=== PATIENT | male | born 1950 | race Caucasian/White ===

== ENCOUNTER 2020-01-24 23:29 | Inpatient (IN) | payer MEDICARE, OTHER ==
[~2020-01-24] VITALS: Ht 172.7 cm; Wt 78.7 kg
[~2020-01-24 23:29] MED LIST: AMBI5TAB PO; CYMB60CA3 PO; DESI25TA59 PO; DULO30CA9 PO; KLON1TAB PO; SIMV40TA20 PO; ZOCO40TA PO
[2020-01-25 00:21] LABS: HEMATOCRIT 41.9 % (42.0-52.0); MEAN CORPUSCULAR HEMOGLOBIN 30.2 pg (27.0-33.0); MEAN CORPUSCULAR HGB CONC 33.4 g/dl (32.0-36.5); MEAN CORPUSCULAR VOLUME 90.5 fl (80.0-96.0); PLATELET COUNT, AUTOMATED 280 10^3/uL (150-450); RED BLOOD COUNT 4.63 10^6/uL (4.30-6.10); WHITE BLOOD COUNT 8.3 10^3/uL (4.0-10.0)
[2020-01-25 00:46] LABS: AMPHETAMINES LEVEL URINE NEGATIVE (NEGATIVE); BARBITURATES URINE NEGATIVE (NEGATIVE); BENZODIAZEPINES URINE NEGATIVE (NEGATIVE); CANNABINOIDS URINE NEGATIVE (NEGATIVE); COCAINE METABOLITE URINE NEGATIVE (NEGATIVE); METHADONE URINE NEGATIVE (NEGATIVE); OPIATES URINE POSITIVE (NEGATIVE); PHENCYCLIDINE URINE NEGATIVE (NEGATIVE)
[2020-01-25 00:57] LABS: ACETAMINOPHEN LEVEL 4.2 UG/ML (10.0-30.0); ALBUMIN 3.9 GM/DL (3.2-5.2); ALT/SGPT 30 U/L (12-78); BILIRUBIN,DIRECT 0.2 MG/DL (0.0-0.2); BILIRUBIN,TOTAL 0.8 MG/DL (0.2-1.0); BLOOD UREA NITROGEN 18 MG/DL (7-18); CALCIUM LEVEL 9.4 MG/DL (8.8-10.2); CARBON DIOXIDE LEVEL 28 MEQ/L (21-32); CHLORIDE LEVEL 106 MEQ/L (98-107); CREATININE FOR GFR 1.08 MG/DL (0.70-1.30); ETHYL ALCOHOL (ETHANOL) < 0.003 % (0.000-0.010); GLOMERULAR FILTRATION RATE > 60.0 (>49); GLUCOSE, FASTING 86 MG/DL (70-100); POTASSIUM SERUM 3.8 MEQ/L (3.5-5.1); SALICYLATE LEVEL < 1.7 MG/DL (5.0-30.0); SODIUM LEVEL 140 MEQ/L (136-145); TOTAL PROTEIN 6.8 GM/DL (6.4-8.2)
[2020-01-25] MEDS ORDERED: ACETAMINOPHEN TAB 650MG DOSE (2X325MG) PO PRN (02:15)
[2020-01-25] MEDS ORDERED: MOM 30ML SUSPENSION UDC PO PRN (02:15)
[2020-01-25] MEDS ORDERED: traZODone 50 MG TAB PO PRN (02:15)
[2020-01-25] MEDS ORDERED: MAALOX 30 ML SUSP *UDC PO PRN (02:15)
[2020-01-25] MEDS ORDERED: CLON0.5T17 PO (02:33)
[2020-01-25] MEDS ORDERED: SIMV10TA21 PO (02:33)
[2020-01-25 03:53] VITALS: BP 122/72
[2020-01-25 06:33] VITALS: BP 119/72
[2020-01-25] MEDS: DULoxetine 20 MG CAP (CYMBALTA) PO SCH (16:57)
[2020-01-26 06:47] VITALS: BP 139/86
[2020-01-26] MEDS ORDERED: PREVNAR 13 VACCINE SYRINGE IM ONE (09:00)
[2020-01-26] MEDS ORDERED: FLUBLOK(EGG FREE)(QUAD)INFLUENZA VACC 0.5ML SYRINGE 18YRS & OLDER IM ONE (09:00)
--- NOTE | 2020-01-26 09:29 | MHHPE ---
DATE OF ADMISSION: 01/25/2020 VITAL SIGNS: Blood pressure 119/72, pulse 68, temperature 97.5. CHIEF COMPLAINT: Feels depressed. SUBJECTIVE: He is 69 years old, he has a son, the son lives with the mother, he has been estranged from his son for the last 3 years or so, has limited contact, this distresses him. He has been feeling increasingly depressed, says has had a long history of major depression, indicates has been diagnosed with that, though a previous admission summary may have suggested bipolar disorder, he was here about 5 years ago. He has been feeling increasingly depressed recently, says particularly after he lost his other son about a year ago, to an overdose, says that has impacted him immensely, and has not wished to live after that. Says typically his depression had been going on for decades. He is not in any treatment locally, though does see a psychiatrist in [facility], says used to see him once a month, but now during the pandemic it is much less frequent, psychiatrist prescribes him his medicine, which he takes at night, Klonopin 1 mg, he is also on Cymbalta at 80 mg daily, has been on it for a while. Says tried various medications, and that they have generally not been effective, and several years ago, more than 20 years ago, had received electroconvulsive treatment (ECT) treatment as well. Says is generally resistant to medications. He had been adjusting as well, vague on whether it was in response to thoughts of hurting himself, but more so in terms of changes he wants to make. Says then decided to kill himself, did think about it for a little while, and tried doing that on his younger sons 16th birthday, yesterday. Took extra painkillers, and Klonopins, says did not think that would be enough to kill him, but wanted to harm himself. Has family, but says they do not understand him, and that he is generally done with them. He had sent a mass e-mail to family members indicating or at least alluding to his killing himself. Feels tired a fair amount, appetite okay, sleep tends to vary. No psychomotor retardation. PAST PSYCHIATRIC HISTORY: Has been diagnosed with major depression, has been treated with various antidepressants, and augmentation strategies, has also been on ECT several years ago, currently lives in [facility]. Sees a psychiatrist in [facility], has not seen him in a while, because of COVID, but they maintain contact. FAMILY PSYCHIATRIC HISTORY: Unclear. SUBSTANCE ABUSE HISTORY: Denies any as such. SOCIAL HISTORY: Please refer to previous summaries, currently has no contact with his younger son. He had lost his other son a year ago. MENTAL STATUS EXAMINATION: Somewhat unkempt, guarded, though superficially cooperative. No psychomotor retardation. No agitation as such. Affect is restricted in range, displays mild irritability. Vague on suicidal thoughts, no firm plans, no homicidal ideas or intents, no evidence of any psychosis. Cognition is grossly intact. Intellect average. Judgment and insight are compromised. ASSESSMENT: Major depressive disorder, recurrent, severe. Sons last year. Limited access to other son. He is quite depressed, suicidal, has attempted that, and had been making plans. Sons loss from last year has impacted him quite considerably, as does the absence from his other son. PLAN: He is admitted to the inpatient psychiatry unit, placed on relevant precautions. We will continue with his current outpatient medications, he takes Cymbalta at 80 mg daily. He will receive a medicine consulted, as indicated. He will be encouraged to engage in treatment within the unit. He will be discharged with followup once he is stable. I would anticipate a 5-7 day stay. Obtaining collateral information from outpatient psychiatrist, as well as family members, is potentially useful. Further recommendations will be made depending on the clinical picture. It should also be noted, he has indicated he is not interested in using medications to augment the Cymbalta, says has given ketamine a bit of thought, nothing specific. The assessment took 35 minutes. VERONICA
[2020-01-26] MEDS: DULoxetine 20 MG CAP (CYMBALTA) PO SCH (10:42)
[2020-01-26 18:53] VITALS: BP 141/79
[2020-01-27 06:36] VITALS: BP 120/83
--- NOTE | 2020-01-27 09:55 | MHIPNPDOC ---
[facility] Progress Note Progress Note DATE OF SERVICE: 01/27/20 Subjective HPI: Flip presents today for a follow-up. Patient met with today, he reports that the Cymbalta change hasnt made any appreciable effects for him, but he doesnt expect it. He reports he was talking with his operation provider about Ketamine but has had trouble affording it, reporting that it was quite expensive. He was unaware of local Ketamine resources discussed with patient. Flip reports he has more happiness and notably more hopeful than previously noted to be. Discussed with on-call provider and sign-out as notes are still in dictation. Patient was hopeful and more engaged. Objective Appearance: Appears to be stated age. Well nourished. Well groomed. Behavior: Cooperative with good eye contact. Pleasant. Engaged. Affect: Full range. Appropriate to context. Mood: Appropriately reactive. Euthymic. Generally good. Speech: Normal volume. Normal rate. Spontaneous and Fluid. Motor: No gross motor abnormalities. Cognition: Alert, Attentive, and Oriented to person, place, time. 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 No formal testing. Thought Form: Linear and goal directed. Thought Content: No evidence of suicidal ideation. No evidence of delusions. No thoughts of self harm. No evidence of aggressive or homicidal ideation. Perception: No perceptual abnormalities noted. Judgement: Intact as evidenced by decision making in the recent past. Insight: Good insight into symptoms and treatment options. Assessment F33.1 Major depressive disorder, recurrent, moderate F43.10 Post-traumatic stress disorder, unspecified Plan The risks, benefits as well as common side effects as well as alternative treatments (including non-treatment) were discussed with the patient both in general and for their particular case. The patient selected this option out of a range. Continue Cymbalta 90 mg. He is doing quite well and is interested in when he might be able to go, he does have high-risk factors, however, these are mostly chronic and unmodifiable in my opinion from his current presenting issues. He is very open to [place] of what he can attend and continue to see his current psychiatrist. Will continue to evaluate but will likely discharge midweek as his main dynamic factors appear to resolve; his stressors are unlikely to change significantly. Patient demonstrates good insight into his problems. Vital Signs Vital Signs Date Time Temp Pulse Resp B/P (MAP) Pulse Ox O2 Delivery O2 Flow Rate FiO2 01/27/20 06:36 99.1 72 16 120/83 (95) 100 Room Air Current Medications Current Medications Medications (Trade) Dose Ordered Sig/Koffi Route PRN Reason Start Time Stop Time Status Last Admin Dose Admin Acetaminophen (Tylenol Tab) 650 mg Q6HP PRN PO HEADACHE or DISCOMFORT 01/25/20 02:15 Al Hydrox/Mg Hydrox/Simethicone (Mylanta) 30 ml Q4HP PRN PO HEARTBURN/INDIGESTION 01/25/20 02:15 Duloxetine HCl (Cymbalta) 80 mg DAILY PO 01/25/20 09:00 01/26/20 14:39 DC 01/26/20 10:42 Duloxetine HCl (Cymbalta) 90 mg DAILY PO 01/27/20 09:00 Home Med (Med Rec Complete!) ASDIRECTED XX 01/25/20 02:45 01/25/20 02:35 DC Magnesium Hydroxide (Milk Of Magnesia) 30 ml DAILYPRN PRN PO CONSTIPATION 01/25/20 02:15 Trazodone HCl (Desyrel) 50 mg QHSP PRN PO INSOMNIA 01/25/20 02:15 Allergies Coded Allergies: No Known Allergies (Verified , 11/24/04) JUSTIN ADLER DO Jan 27, 2020 09:55
[2020-01-27] MEDS: DULoxetine 30 MG CAP (CYMBALTA) PO SCH (10:24)
--- NOTE | 2020-01-27 10:48 | HPEPDOC ---
[facility] Medical History & Physical Date of Admission Jan 25, 2020 Date of Service: Jan 27, 2020 History and Physical PCP: Dr. Alexi Tobias HPI: 69yoM admitted to [facility] for Major Depressive episode with thoughts of harming himself. No acute medical complaints today. ROS: Besides from depression, medically he has no complaints & entire ROS is negative. He has a dorsal column stimulator that he doesn't use (not turned on), and he only takes meloxicam on a daily basis for chronic aches and pains. 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 1 brother committed suicide. Children: 2 sons Unexpected deaths due to medical reasons: None. PE: GEN: Appears stated age. Well-nourished, well developed. No acute distress. Alert and oriented x 3. Pleasant, interactive. HEENT: Normocephalic, atraumatic. Extraocular movements are intact. No nystagmus appreciated. Sclera are nonicteric. Conjunctiva without injection. Nose midline. Moist mucous membranes. Dentition fair. Pharynx pink and moist, no cobblestoning. Neck supple, trachea midline. No lymphadenopathy or thyromegaly appreciated. CHEST: Regular rate and rhythm, no murmurs, rubs, or gallops. LUNGS: Clear to auscultation bilaterally. No wheezes, rales, or rhonchi. Breathing appears symmetric and easy. Patient is speaking in full sentences. No accessory muscle use. ABD: Thin, soft, non-tender, non-distended. +Bowel sounds throughout. No rebound or guarding. No costovertebral angle tenderness. EXT: Pulses 2+ bilaterally dorsalis pedis and radial. No lower extremity edema appreciated. SKIN: [place], dry, warm. Capillary refill <2sec. No rashes. NEURO: Alert and oriented x 3. No focal deficits appreciated, no gait abnormality. A&P: 69yoM admitted to [facility] for Major Depressive Episode with thoughts of harming self. 1. Psych. Plan per Psychiatry. 2. Hypercholesterolemia. Continue with home dose of Simvastatin. 3. 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 No issues these p ast 20 years, no additional workup required at this time. 4. Generalized aches and pains / arthritis. Continue home dose of Meloxicam. Vital Signs Vital Signs Date Time Temp Pulse Resp B/P (MAP) Pulse Ox O2 Delivery O2 Flow Rate FiO2 01/27/20 06:36 99.1 72 16 120/83 (95) 100 Room Air Home Medications Scheduled Clonazepam (Clonazepam) 0.5 Mg Tab.rapdis, 0.5 MG PO TID Simvastatin (Simvastatin) 10 Mg Tablet, 10 MG PO DAILY Allergies Coded Allergies: No Known Allergies (Verified , 11/24/04) A-FIB/CHADSVASC A-FIB History Current/History of A-Fib/PAF?: No ANTOLIN STILES DO Jan 27, 2020 10:36
[2020-01-27] MEDS: MELOXICAM (MOBIC) 7.5 MG TAB PO SCH (13:04)
[2020-01-27] MEDS: SIMVASTATIN 10 MG TAB PO SCH (13:04)
[2020-01-27 17:56] VITALS: BP 128/85
[2020-01-28 06:34] VITALS: BP 140/96
[2020-01-28] MEDS: SIMVASTATIN 10 MG TAB PO SCH (09:44)
[2020-01-28] MEDS: DULoxetine 30 MG CAP (CYMBALTA) PO SCH (09:44)
[2020-01-28] MEDS: MELOXICAM (MOBIC) 7.5 MG TAB PO SCH (09:44)
--- NOTE | 2020-01-28 09:53 | MHIPNPDOC ---
[facility] Progress Note Progress Note DATE OF SERVICE: 01/28/20 Subjective HPI: Flip presents today for a regular recheck. He feels good today. He denies any suicidal thoughts or homicidal thoughts. Objective Appearance: Well groomed. Well nourished. Appears to be stated age. Behavior: Pleasant. Engaged. Cooperative with good eye contact. Affect: Appropriate to context. Full range. Mood: Euthymic. Appropriately reactive. Generally good. Speech: Normal volume. Spontaneous and Fluid. Normal rate. Motor: No gross motor abnormalities. Cognition: Alert, Attentive, and Oriented to person, place, time. Memory: No formal testing. No gross abnormalities of short or custodial memory noted during interview. Thought Form: Linear and goal directed. Thought Content: No thoughts of self harm. No evidence of delusions. No evidence of aggressive or homicidal ideation. No evidence of suicidal ideation. Perception: No perceptual abnormalities noted. Judgement: Intact as evidenced by decision making in the recent past. Insight: Good insight into symptoms and treatment options. Assessment F33.2 Major depressive disorder, recurrent severe without psychotic features Plan Flip was met with today. He reports that he is doing much better and is hopeful about Ketamine treatment. He reports that Cymbalta is helpful and his mood has improved. He is more future orientated. Although he recognizes his hopelessness, he no longer feels owned by it. Continue Cymbalta 90 mg and will subsequently be discharged tomorrow. We will arrange for [place] Discussed with patient that he will be able to continue with his current provider. Vital Signs Vital Signs Date Time Temp Pulse Resp B/P (MAP) Pulse Ox O2 Delivery O2 Flow Rate FiO2 01/28/20 06:34 98.6 62 16 140/96 (111) 99 Room Air Current Medications Current Medications Medications (Trade) Dose Ordered Sig/Koffi Route PRN Reason Start Time Stop Time Status Last Admin Dose Admin Acetaminophen (Tylenol Tab) 650 mg Q6HP PRN PO HEADACHE or DISCOMFORT 01/25/20 02:15 Al Hydrox/Mg Hydrox/Simethicone (Mylanta) 30 ml Q4HP PRN PO HEARTBURN/INDIGESTION 01/25/20 02:15 Duloxetine HCl (Cymbalta) 80 mg DAILY PO 01/25/20 09:00 01/26/20 14:39 DC 01/26/20 10:42 Duloxetine HCl (Cymbalta) 90 mg DAILY PO 01/27/20 09:00 01/28/20 09:44 Home Med (Med Rec Complete!) ASDIRECTED XX 01/25/20 02:45 01/25/20 02:35 DC Magnesium Hydroxide (Milk Of Magnesia) 30 ml DAILYPRN PRN PO CONSTIPATION 01/25/20 02:15 Meloxicam (Mobic) 7.5 mg DAILY PO 01/27/20 09:00 01/28/20 09:44 Simvastatin (Zocor) 10 mg DAILY PO 01/27/20 09:00 01/28/20 09:44 Trazodone HCl (Desyrel) 50 mg QHSP PRN PO INSOMNIA 01/25/20 02:15 Allergies Coded Allergies: No Known Allergies (Verified , 11/24/04) JUSTIN ADLER DO Jan 28, 2020 09:53
--- NOTE | 2020-01-28 12:32 | MHIPN ---
DATE: 01/26/2020 VITAL SIGNS: Blood pressure 139/86, pulse 59, temperature 98.5. CHIEF COMPLAINT: Feels depressed. SUBJECTIVE: Seen for followup. Indicates feels depressed, but that he is possibly somewhat less depressed than he had been when he came in. His sense of hopelessness is slightly diminished as well. Says has spoken with a couple of family members, regarding practicalities regarding his work. He is worried regarding his younger son, grieves for his other son, who a year ago. Does say is looking at ways of coping, and does not feel as hopeless. MENTAL STATUS EXAMINATION: Neat, cooperative, no agitation, no psychomotor retardation, he is coherent. Affect is reactive though restricted, and becomes quite tearful when talking about both of his sons, but reconstitutes. Somewhat vague on suicidal thoughts, no firm plans as such at present. No homicidal ideas or intents, no evidence of any psychosis. Judgment and insight remain diminished. ASSESSMENT: Major depressive disorder, recurrent, severe. Possibly slightly less depressed, a bit more hopeful. PLAN: We spoke of considering increasing the Cymbalta to 90 mg daily, he currently takes 80 mg, has been on this dose for several months at least, says his psychiatrist and he were talking about increasing it in the past. The patient agrees to the increase. Meanwhile, he is to be encouraged to participate in activities within the unit. Further recommendations will be made depending on the clinical picture. Will look at arranging for discharge as indicated, but I anticipate the patient being here for the next couple of days, given the intensity of his depression, as he remains high risk for harming himself. VERONICA
[2020-01-28 18:00] VITALS: BP 134/87
[2020-01-29 06:32] VITALS: BP 120/81
--- NOTE | 2020-01-29 08:54 | MHDSPDOC ---
[facility] Discharge Summary Discharge Summary DATE OF ADMISSION: Jan 25, 2020 at 02:04 DATE OF DISCHARGE: Jan 29, 2020 at 14:55 DISCHARGE DIAGNOSES: F33.2 Major depressive disorder, recurrent severe without psychotic features CONSULTANTS INVOLVED:[ None (basic hospitalist screening)] REASON FOR ADMISSION & TREATMENT AND PROGRESS ON THE UNIT : The patient was admitted to inpatient mental health unit after reportedly making concerning statements over an email about a will. 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 Patient reported that he had been misusing his Clonazepam and became much more disinhibited and was likely thinking about suicide. He was admitted and resumed on Cymbalta 60 mg increased to 90 mg by the on-call provider. Patient has made some progress. He became more helpful, less dismissive, and was able to talk about his feelings. He was open to Ketamine, but reported he did not have access to it. He was provided a referral information to [facility] Ketamine program as he reports that he would like to try that. Patient failed ECT and other intensive treatments, although the treatment became much more helpful, engaged was pleasant, and cooperative by the end of his admission had returned to a normal mental state. DISCHARGE ASSESSMENT[improved] Legal status considerations: The patient at the time of discharge did not meet criteria for involuntary admission/extension due to having a [normal] mental status exam, [fair] insight into the situation, They are engaged in the discharge process, as well as being friendly and amenable in behavioral control and havent been engaging in any observed concerning behavior or ideation recently. They decline voluntary extension/admission at this time and must be discharged in good kelly, as Im unable to make a case for holding the patient against their will. They may have historical risk factors of admissions and other interactions with psychiatry however, those are not modifiable from a clinical perspective. The patient will need to be discharged in good kelly. MENTAL STATUS EXAMINATION ON DISCHARGE: [General: Well dressed with good hygiene Speech: Spontaneous and fluid Thought processes: Linear and logical Thought content: Future orientated Abstract reasoning, and computation: Intact Description of associations: Intact Description of abnormal or psychotic thoughts:Denies any suicidal or homicidal ideation. Denies any auditory or visual hallucinations. Does not appear to be responding to internal stimuli. Does not appear to be endorsing any bizarre or paranoid ideation. Judgment: fair Insight: fair Orientation: Alert and orientated 3 Recent and remote memory: Intact Attention span and concentration: Intact Fund of knowledge: Adequate Mood: "okay" Affect: Euthymic with a full range] PLAN/FOLLOWUP ARRANGEMENTS: Follow up appointments made (PCP and MH in 5 days of D/C date) and safety plan completed. Safety Planning aspects completed prior to discharge [Medication supplies limited to 7 days with 4 refills to prevent accumulation to OD] [RN reviewed crisis hotline information and other aspects to empower patient to access care in interim before next appointment.] coordinated new treatment referral information The amount of time spent in the coordination of care for this patient was approximately 30 minutes. Vital Signs/I&Os Vital Signs Date Time Temp Pulse Resp B/P (MAP) Pulse Ox O2 Delivery O2 Flow Rate FiO2 01/29/20 06:32 98.8 67 16 120/81 (94) 94 Room Air Medications Scheduled Duloxetine Hcl (Cymbalta) 30 Mg Capsule.dr, 90 MG PO DAILY for mood for 7 Days, #21 Simvastatin (Simvastatin) 10 Mg Tablet, 10 MG PO DAILY, (Reported) Allergies Coded Allergies: No Known Allergies (Verified , 11/24/04) JUSTIN ADLER DO Jan 29, 2020 08:54
[2020-01-29] MEDS ORDERED: CYMB1CAP5 PO (08:59)
[2020-01-29] MEDS: MELOXICAM (MOBIC) 7.5 MG TAB PO SCH (09:26)
[2020-01-29] MEDS: DULoxetine 30 MG CAP (CYMBALTA) PO SCH (09:26)
[2020-01-29] MEDS: SIMVASTATIN 10 MG TAB PO SCH (09:26)
== END 2020-01-29 14:55 | disposition home or self-care (01) | DRG 885 ==
LOC: M ED 23:29 → M ED INP 01-25 02:04 → M PSY 01-25 03:03
PROVIDERS: ADMIT Psychiatry & Neurology Psychiatry; ATTEND Psychiatry & Neurology Addiction Medicine
DX: F33.2 Major depressive disorder, recurrent severe without psychotic features (principal); F43.21 Adjustment disorder with depressed mood; F43.10 Post-traumatic stress disorder, unspecified; E78.00 Pure hypercholesterolemia, unspecified; Z85.831 Personal history of malignant neoplasm of soft tissue; Z81.8 Family history of other mental and behavioral disorders; Z63.8 Other specified problems related to primary support group; Z96.651 Presence of right artificial knee joint; Z79.1 Long term (current) use of non-steroidal anti-inflammatories (NSAID); Z79.899 Other long term (current) drug therapy

== ENCOUNTER → 2023-04-27 | Day surgery (SDC) | payer MEDICARE ==
[~2023-04-27] VITALS: Ht 172.7 cm; Wt 85.2 kg
[~2023-04-27] MED LIST changes: +BSS IRRIG/VANCO(10MG)/TOBRA(5MG)/EPINEPH(1:1000-0.5CC)500ML BAG-ORONLY IR ONE; +CEFUROXIME 1MG/0.1ML INTRACAMERAL INJ As Ordered ONE; +CLON0.5T17 PO; +CLON0.5T2 PO; +CYCLOPENTOLATE 1% OPHTH SOLN 2ML BTL OD SCH; +CYMB1CAP5 PO; -CYMB60CA3 PO; +CYMB60CA4 PO; +LIDOCAINE 1% SDV 5ML VIAL As Ordered ONE; +LIDOCAINE 3.5 % 1ML OPHTH TOPICAL GEL OU ONE; +LOSA50TA28 PO; +MELO7.5T35 PO; +MIDAZOLAM INJ 2MG/2ML VIAL As Ordered ONE; +OFLOXACIN 0.3 % (OCUFLOX) OPTH SOL 5ML OD ONE; +PHENYLEPHRINE 10% OPHTH SOL 5ML OD PRN; +PHENYLEPHRINE 2.5% OPHTH SOL 2ML OD SCH; +ROSU10TA6 PO; +SIMV-254 PO; +SIMV10TA21 PO; +TROPICAMIDE 1% OPHTH SOLN 15ML OD SCH; -ZOCO40TA PO; +fentaNYL 100 MCG/2 ML INJECTION As Ordered ONE
[2023-04-27 10:14] VITALS: BP 129/83; TEMP 97.5; O2SAT 97
== END | disposition home or self-care (01) ==
LOC: M SDC 07:45
PROVIDERS: ATTEND Ophthalmology
DX: H25.11 Age-related nuclear cataract, right eye (principal); I10 Essential (primary) hypertension; E78.00 Pure hypercholesterolemia, unspecified; G47.30 Sleep apnea, unspecified; Z79.899 Other long term (current) drug therapy; Z85.828 Personal history of other malignant neoplasm of skin
CPT/HCPCS: 66984; J0697; J2250; J3010; V2632

== ENCOUNTER 2023-06-22 07:52 | Day surgery (SDC) | payer MEDICARE ==
[~2023-06-22] VITALS: Ht 172.7 cm; Wt 85.3 kg
[~2023-06-22 07:52] MED LIST changes: -CEFUROXIME 1MG/0.1ML INTRACAMERAL INJ As Ordered ONE; -CYCLOPENTOLATE 1% OPHTH SOLN 2ML BTL OD SCH; +CYCLOPENTOLATE 1% OPHTH SOLN 2ML BTL OS SCH; -KLON1TAB PO; +KLON1TAB13 PO; -LIDOCAINE 1% SDV 5ML VIAL As Ordered ONE; -OFLOXACIN 0.3 % (OCUFLOX) OPTH SOL 5ML OD ONE; +OFLOXACIN 0.3 % (OCUFLOX) OPTH SOL 5ML OS ONE; -PHENYLEPHRINE 10% OPHTH SOL 5ML OD PRN; +PHENYLEPHRINE 10% OPHTH SOL 5ML OS PRN; -PHENYLEPHRINE 2.5% OPHTH SOL 2ML OD SCH; +PHENYLEPHRINE 2.5% OPHTH SOL 2ML OS SCH; -TROPICAMIDE 1% OPHTH SOLN 15ML OD SCH; +TROPICAMIDE 1% OPHTH SOLN 15ML OS SCH
[2023-06-22] MEDS: CYCLOPENTOLATE 1% OPHTH SOLN 2ML BTL OS SCH (08:19)
[2023-06-22] MEDS: OFLOXACIN 0.3 % (OCUFLOX) OPTH SOL 5ML OS ONE (08:19)
[2023-06-22] MEDS: TROPICAMIDE 1% OPHTH SOLN 15ML OS SCH (08:19)
[2023-06-22] MEDS: LIDOCAINE 3.5 % 1ML OPHTH TOPICAL GEL OU ONE (08:20)
[2023-06-22] MEDS: PHENYLEPHRINE 2.5% OPHTH SOL 2ML OS SCH (08:20)
[2023-06-22] MEDS: BSS IRRIG/VANCO(10MG)/TOBRA(5MG)/EPINEPH(1:1000-0.5CC)500ML BAG-ORONLY As Ordered ONE (09:20)
[2023-06-22] MEDS: LIDOCAINE 1% SDV 5ML VIAL As Ordered ONE (09:20)
[2023-06-22] MEDS: CEFUROXIME 1MG/0.1ML INTRACAMERAL INJ As Ordered ONE (09:20)
[2023-06-22 09:36] VITALS: BP 163/89; TEMP 99; O2SAT 96
== END 2023-06-22 09:55 | disposition home or self-care (01) ==
LOC: M SDC 07:52
PROVIDERS: ATTEND Ophthalmology
DX: H25.12 Age-related nuclear cataract, left eye (principal); I10 Essential (primary) hypertension; E78.5 Hyperlipidemia, unspecified; F41.9 Anxiety disorder, unspecified; F32.A Depression, unspecified; G47.33 Obstructive sleep apnea (adult) (pediatric); Z79.899 Other long term (current) drug therapy
CPT/HCPCS: 66984; J0697; J2250; V2632

== ENCOUNTER → 2023-08-31 | Outpatient (REF) | payer MEDICARE ==
[~2023-08-31] MED LIST changes: -BSS IRRIG/VANCO(10MG)/TOBRA(5MG)/EPINEPH(1:1000-0.5CC)500ML BAG-ORONLY IR ONE; -CYCLOPENTOLATE 1% OPHTH SOLN 2ML BTL OS SCH; -LIDOCAINE 3.5 % 1ML OPHTH TOPICAL GEL OU ONE; -MIDAZOLAM INJ 2MG/2ML VIAL As Ordered ONE; -OFLOXACIN 0.3 % (OCUFLOX) OPTH SOL 5ML OS ONE; -PHENYLEPHRINE 10% OPHTH SOL 5ML OS PRN; -PHENYLEPHRINE 2.5% OPHTH SOL 2ML OS SCH; -TROPICAMIDE 1% OPHTH SOLN 15ML OS SCH; -fentaNYL 100 MCG/2 ML INJECTION As Ordered ONE
[2023-08-31 19:18] LABS: GC DNA AMPLIFICATION NEGATIVE (NEGATIVE)
== END ==
LOC: M SMT 17:00
PROVIDERS: ATTEND Nurse Practitioner Family
DX: N50.819 Testicular pain, unspecified (principal); Z11.3 Encounter for screening for infections with a predominantly sexual mode of transmission; Z72.89 Other problems related to lifestyle

== ENCOUNTER → 2023-09-14 | Outpatient (CLI) | payer MEDICARE | LOC: M RAD 12:11 | PROVIDERS: ATTEND Nurse Practitioner Family | DX: N50.819 Testicular pain, unspecified (principal); N50.3 Cyst of epididymis ==

== ENCOUNTER → 2024-02-19 | Outpatient (REF) | payer MEDICARE ==
[~2024-02-19] MED LIST changes: -ROSU10TA6 PO; +ROSU10TA61 PO
[2024-02-19 13:22] LABS: APPEARANCE, URINE CLEAR (CLEAR); BACTERIA, URINE AUTO NEGATIVE (NEGATIVE); BILIRUBIN, URINE AUTO NEGATIVE (NEGATIVE); BLOOD, URINE BLOOD NEGATIVE (NEGATIVE); COLOR, URINE YELLOW (YELLOW); GLUCOSE, URINE (UA) AUTO NEGATIVE (NEGATIVE); KETONE, URINE AUTO NEGATIVE (NEGATIVE); LEUKOCYTE ESTERASE, URINE AUTO NEGATIVE (NEGATIVE); MUCUS, URINE SMALL (NEGATIVE); NITRITE, URINE AUTO NEGATIVE (NEGATIVE); PROTEIN, URINE AUTO NEGATIVE (NEGATIVE); RBC, URINE AUTO 0 /HPF (0-3); SQUAMOUS EPITHELIAL CELL UR AU 0 /HPF (0-6); UROBILINOGEN, URINE AUTO 0.2 mg/dL (0.0-2.0); WBC, URINE AUTO 0 /HPF (0-3)
== END ==
LOC: M SMT 12:26
PROVIDERS: ATTEND Nurse Practitioner Family
DX: R97.20 Elevated prostate specific antigen [PSA] (principal); Z79.899 Other long term (current) drug therapy